=== PATIENT | male | born 1995 | race African-American/Black ===

== ENCOUNTER 2020-10-19 03:25 | Inpatient (IN) | payer OTHER ==
[~2020-10-19] VITALS: Ht 182.9 cm; Wt 103.6 kg
[2020-10-19] VITALS (28 sets, daily range): BP systolic 93–134; BP diastolic 38–93
--- NOTE | 2020-10-19 03:40 | NUR ---
ARRIVAL PATIENT CALLED AHEAD BECAUSE HE IS FROM OUT OF TOWN AND DRIVING THROUGH. STATES THAT HE IS DIZZY, WEAK, HOT AND BEGAN SHAKING UNCONTROLABLY IN THE CAR. VOICES THAT HE HAS A HISTORY OF DM AND DOES NOT TAKE HIS INSULIN LIKE HE IS SUPPOSED TO. "I HAVEN'T TAKEN MY INSULIN IN A YEAR." PATIENT STATES THAT HE DID VOMIT ONE TIME YESTERDAY MORNING, BUT THEN FELT FINE DURING THE DRIVE UNTIL THE HOT FLASHES AND SHAKING BEGAN. PATIENT IS WEAK, WITH UNSTEADY GAIT. EDUCATED PATIENT ON SEPSIS WORKUP, ALL TESTS, MEDICATIONS AND LENGTH OF STAY. VERBALIZED UNDERSTANDING AT THIS TIME.
[2020-10-19] MEDS ORDERED: TYLENOL PO STA (03:46)
[2020-10-19] MEDS ORDERED: NS 1000ML 1,000 ML IV STA ×3 (03:46→05:09)
--- NOTE | 2020-10-19 03:51 | NUR ---
RT AT BEDSIDE FOR EKG.
--- NOTE | 2020-10-19 03:53 | NUR ---
RAD AT BEDSIDE FOR PORTABLE CHEST XRAY
[2020-10-19] MEDS ORDERED: TYLENOL PO ONE (03:54)
[2020-10-19] MEDS ORDERED: NS 1000ML 2,000 ML ONE (03:54)
--- NOTE | 2020-10-19 03:56 | ER.PDOC ---
General Chief Complaint: Requesting Medical Care Stated Complaint: FEVER/CHILLS Time seen by MD: 03:53 Source: patient Exam Limitations: no limitations History of Present Illness Initial Comments Fever and malaise this morning. Patient is traveling past this area to [place]. No cough, headache or sore throat, cough or SOB. He denies headache. He is a diabetic who is supposed to be taking insulin but has not done so since last year. Patient had COVID last year. Timing/Duration: gradual Severity: moderate Associated Symptoms: fever/chills Allergies: Coded Allergies: No Known Allergies (Unverified , 10/19/20) Constitutional: see HPI EENTM: no symptoms reported Respiratory: no symptoms reported Cardiovascular: no symptoms reported Gastrointestinal: no symptoms reported Genitourinary: no symptoms reported All Other Systems: Reviewed and Negative Past Medical History Medical History: diabetes Surgical History: no surgical history Family History Significant Family History: no pertinent family hx Social History Smoking: non-smoker Alcohol Use: none Drug Use: none Physical Exam General Appearance: alert, no distress Eye: eyes nml inspection Nose: nose nml Throat: pharynx nml, airway nml Neck: nml inspection, supple Respiratory: no resp.distress, breath sounds nml Abdomen: non-tender, no organomegaly CVS: reg rate & rhythm, heart sounds nml, tachycardia Skin: color nml, no rash, warm/dry Extremities: non-tender, nml ROM, no pedal edema NEURO/PSYCH: oriented x 3, CN's nml as tested, motor nml, sensation nml, mood/affect nml Results/Orders Results/Orders Orders - BREANA HOGAN MD Cbc With Auto Diff (10/19/20 03:46) Comprehensive Metabolic Panel (10/19/20 03:46) Ekg-Routine (10/19/20 03:46) Xr Chest 1v (10/19/20 03:46) Strep Screen (10/19/20 03:46) Covid19 Antigen Janelle Anne-Marie (10/19/20 03:46) Influenza A&B (10/19/20 03:46) Blood Culture (10/19/20 03:46) Lactic Acid(Ml) (10/19/20 03:46) Procalcitonin (10/19/20 03:46) Urinalysis (10/19/20 03:46) C-Reactive Protein (10/19/20 03:46) Ferritin(Ml) (10/19/20 03:46) Lactate Dehydrogenase (10/19/20 03:46) 0.9 % Sodium Chloride (Ns 1000ml) (10/19/20 03:46) Acetaminophen (Tylenol) (10/19/20 03:46) 0.9 % Sodium Chloride (Ns 1000ml) (10/19/20 03:54) Acetaminophen (Tylenol) (10/19/20 03:54) D-Dimer (10/19/20 03:55) Arterial Blood Gas (10/19/20 04:09) Covid Resp [place] (10/19/20 04:16) 0.9 % Sodium Chloride (Ns 1000ml) (10/19/20 04:22) Urine Culture (10/19/20 03:45) 0.9 % Sodium Chloride (Ns 1000ml) (10/19/20 05:09) Drug Scrn Med W Confirmation (10/19/20 05:27) Insulin Regular, Human (Humulin R) (10/19/20 05:42) Insulin Regular, Human (Humulin R) (10/19/20 05:42) Insulin Regular, Human (Humulin R) (10/19/20 05:43) Vital Signs Date Time Temp Pulse Resp B/P (MAP) Pulse Ox O2 Delivery O2 Flow Rate FiO2 10/19/20 05:17 100.1 125 18 119/63 (81) 96 Room Air 10/19/20 04:31 125 22 122/81 (95) 94 Room Air 10/19/20 04:04 103.0 154 30 94 10/19/20 04:04 103.0 154 30 10/19/20 04:04 103.0 154 30 116/78 (91) 94 Room Air Administered Medications Medications (Trade) Dose Ordered Sig/Zack Route PRN Reason Start Time Stop Time Status Last Admin Dose Admin Acetaminophen (Tylenol) 1,000 mg STAT STAT PO 10/19/20 03:46 10/19/20 03:51 DC 10/19/20 04:03 1,000 MG Insulin Human Regular (Humulin R) 10 unit OT STAT IV 10/19/20 05:42 10/19/20 05:45 DC 10/19/20 05:48 10 UNIT Insulin Human Regular (Humulin R) 10 unit OT STAT SQ 10/19/20 05:42 10/19/20 05:45 DC 10/19/20 05:48 10 UNIT Sodium Chloride 1,000 ml @ 1,200 mls/hr Q50M STAT IV 10/19/20 03:46 10/19/20 04:35 DC 10/19/20 04:03 1,200 MLS/HR Sodium Chloride 1,000 ml @ 1,200 mls/hr Q50M STAT IV 10/19/20 04:22 10/19/20 05:11 DC 10/19/20 04:27 1,200 MLS/HR Sodium Chloride 1,000 ml @ 1,200 mls/hr Q50M STAT IV 10/19/20 05:09 10/19/20 05:58 DC 10/19/20 05:16 1,200 MLS/HR Laboratory Tests Test 10/19/20 03:30 10/19/20 03:45 10/19/20 04:16 10/19/20 05:50 Urine Opiates Screen NEGATIVE (c/o300ng/mL) Urine Methadone Screen NEGATIVE (c/o300ng/mL) Urine Barbiturates Screen NEGATIVE (c/o200ng/mL) Urine Phencyclidine Screen NEGATIVE (c/o 25ng/mL) Ur Amphetamine/Methamphetamine NEGATIVE (gt6586tl/mL) Urine MDMA Screen (Ecstasy) NEGATIVE (c/o300ng/mL) Urine Benzodiazepines Screen NEGATIVE (c/o200ng/mL) Urine Cocaine Metabolite Screen NEGATIVE (c/o300ng/mL) Ur Tetrahydrocannabinol (THC) Scrn NEGATIVE (c/o 50ng/mL) White Blood Count 6.9 10^3/uL (4.5-11.0) Red Blood Count 5.19 10^6/uL (4.50-5.90) Hemoglobin 13.9 g/dL (13.9-16.3) Hematocrit 39.3 % (37.0-53.0) Mean Corpuscular Volume 75.7 fL (78-100) L Mean Corpuscular Hemoglobin 26.8 pg (26-34) Mean Corpuscular Hemoglobin Concent 35.4 g/dL (33-36.5) Red Cell Distribution Width 16.1 % (11.5-14.5) H Platelet Count 251 10^3/uL (150-400) Mean Platelet Volume 11.2 fL (7.8-11.0) H Neutrophils (%) (Auto) 60.9 % (41.0-85.0) Lymphocytes (%) (Auto) 36.2 % (24.0-44.0) Monocytes (%) (Auto) 1.6 % (5.0-12.0) L Neutrophils # (Auto) 4.2 10^3/uL (1.8-7.7) Lymphocytes # (Auto) 2.50 10^3/uL1 (1.0-4.8) Monocytes # (Auto) 0.1 10^3/uL (0.3-0.8) L Absolute Immature Granulocyte (auto 0.06 10^3 u/L (0-2) Absolute Eosinophils (auto) 0.0 10^3/uL (0.0-0.2) Immature Granulocytes % 0.90 % (0.00-0.50) H Eosinophils % 0.1 % (0.0-5.0) Basophils % 0.3 % (0.0-0.2) H Basophils # 0.0 10^3/uL (0.0-0.1) D-Dimer 0.53 mg/L (0.19-0.49) *H Urine Collection Type VOID Urine Color YELLOW (YELLOW) Urine Appearance CLEAR (CLEAR) Urine Bilirubin NEGATIVE MG/DL (NEGATIVE) Urine Ketones 15 mg/dL (NEGATIVE) H Urine Specific [place] <1.005 (1.005-1.035) Urine pH 5.0 (5.0-6.0) Urine Protein 30 mg/dL (NEGATIVE) H Urine Urobilinogen 0.2 (NEGATIVE) Urine Nitrate NEGATIVE (NEGATAIVE) Urine Leukocyte Esterase NEGATIVE (NEGATIVE) Urine Blood NEGATIVE (NEGATIVE) Urine RBC NONE SEEN RBC/HPF (NONE Urine WBC 0-2 WBC/HPF (0-2) Urine Squamous Epithelial Cells FEW #/HPF (FEW) Urine Bacteria FEW (NONE SEEN) H Urine Glucose >=1000 (NEGATIVE) Sodium Level 136 mmol/L (132-145) Potassium Level 4.1 mmol/L (3.6-5.2) Chloride Level 97.0 mmol/L (96-109) Carbon Dioxide Level 20.6 mmol/L (20.0-32) Anion Gap 22.5 Blood Urea Nitrogen 14 mg/dL (7-18) Creatinine 1.50 mg/dL (0.59-1.40) H Estimated GFR () 70.2 (>/=60) Est GFR (CKD-EPI)(Non-Afr [place]) 58.0 (>/=60) BUN/Creatinine Ratio 9.0 Glucose Level 542 mg/dL (70-110) *H Lactic Acid Level 3.3 mmol/L (0.5-1.9) *H Calcium Level 9.1 mg/dL (8.4-10.5) Ferritin 545 ng/mL (26-388) H Total Bilirubin 1.1 mg/dL (0.2-1.0) H Aspartate Amino Transferase (AST) 60 U/L (0-35) H Alanine Aminotransferase (ALT) 98 U/L (12-78) H Alkaline Phosphatase 63 U/L (50-136) Lactate Dehydrogenase 280 U/L (85-227) H C-Reactive Protein 6.10 mg/dL (0.00-5.00) H Total Protein 8.2 g/dL (6.4-8.2) Albumin 3.9 g/dL (3.4-5.0) Globulin 4.3 Albumin/Globulin Ratio 0.906 Procalcitonin 0.53 ng/mL (0.05-0.5) *H Influenza Type A Antigen NEGATIVE (NEG) Influenza B Immunofluorescence NEGATIVE (NEG) SARS-CoV-2 Antigen (Rapid) NEGATIVE (NEGATIVE) Group A Streptococcus Screen NEGATIVE (NEGATIVE) Nasal Adenovirus (PCR) NotDetected (NotDetected) Nasal Coronavirus Type 229E (PCR) NotDetected (NotDetected) Nasal Coronavirus Type HKU1 (PCR) NotDetected (NotDetected) Nasal Coronavirus Type NL63 (PCR) NotDetected (NotDetected) Nasal Coronavirus Type OC43 (PCR) NotDetected (NotDetected) Nasal Enterovirus/Rhinovirus (PCR) NotDetected (NotDetected) Nasal Influenza Type A (H1) (PCR) NotDetected (NotDetected) Nasal Influenza Type A (H3) (PCR) NotDetected (NotDetected) Nasal Swab Influenza Virus B (PCR) NotDetected (NotDetected) Nasal Parainfluenza Type 1 (PCR) NotDetected (NotDetected) Nasal Parainfluenza Type 2 (PCR) NotDetected (NotDetected) Nasal Parainfluenza Type 3 (PCR) NotDetected (NotDetected) Nasal Parainfluenza Type 4 (PCR) NotDetected (NotDetected) Nasal Resp Syncytial Virus (PCR) NotDetected (NotDetected) Nasal Bordetella pertussis DNA (PCR NotDetected (NotDetected) Nasal Chlamydophila pneumoniae (PCR NotDetected (NotDetected) Nasal Human Metapneumovirus (PCR) NotDetected (NotDetected) Nasal Mycoplasma pneumoniae (PCR) NotDetected (NotDetected) Nasal SARS-CoV-2 (PCR) NotDetected (NotDetected) Blood Gas Sample Site LEFT RADIAL ARTERY Blood pH 7.461 (7.350-7.450) Blood Gas PCO2 24.1 mmHg (35.0-45.0) L Blood Gas PO2 54.6 mmHg (80.0-100.0) L Blood Gas HCO3 16.8 mmol/L (22.0-26.0) L Blood Gas Base Excess -5.1 mmol/L (-2.0-2.0) L Tony Test POSITIVE Arterial Blood Oxygen Saturation 90.9 % (94.0-97.00) L Deoxyhemoglobin 9.0 % (0.0-5.0) H Carboxyhemoglobin 1.0 % (0.0-3.9) Methemoglobin 0.5 % (0.00-5.0) Total Hemoglobin 13.7 % (12.0-17.8) Total Oxygen Concentration 17.2 % (13.5-17.5) Oxygen Delivery Method ROOM AIR FiO2 21 % (20-101) Total Carbon Dioxide 17.5 mmol/L (23-27) L Influenza Type A (H1N1/09) (PCR) NotDetected (NotDetected) Lactic Acid Followup at 2 Hours 1.9 mmol/L (0.5-1.9) EKG/XRAY/CT/US EKG: NSR, no ST T wave changes EKG Comments: HR 151, sinus tachycardia XRAY: chest (No active disease) ER DEPART Departure Time of Disposition: 06:29 Disposition: 09 ADMITTED INPATIENT Impression: Primary Impression: Sepsis Additional Impressions: Hyperglycemia due to diabetes mellitus JUNIOR (acute kidney injury) Dehydration Condition: Critical Referrals: PCP,UNKNOWN (PCP) PRIMARY CARE PROVIDER Comments Admitted to Dr. Kenyon Duration or Time Spent with Pa: 60 min Critical Care Note Total Time (mins): 60 Problem Qualifiers Primary Impression: Sepsis Sepsis type: sepsis due to unspecified organism Sepsis acute organ dysfunction status: unspecified Qualified Codes: A41.9 - Sepsis, unspecified organism EDISON,BREANA Diaz MD Oct 19, 2020 03:56
[2020-10-19 03:57] LABS: BASOPHIL % 0.3 % (0.0-0.2); EOSINOPHIL % 0.1 % (0.0-5.0); LYMPHOCYTES % 36.2 % (24.0-44.0); MONOCYTES # 0.1 10^3/uL (0.3-0.8); MONOCYTES % 1.6 % (5.0-12.0); NEUTROPHIL # 4.2 10^3/uL (1.8-7.7); NEUTROPHILS % 60.9 % (41.0-85.0); PLATELET COUNT 251 10^3/uL (150-400)
--- NOTE | 2020-10-19 03:57 | PCM.EKG ---
[facility] Test Date: 2020-10-19 Test Time: 03:50:47 Pat Name: RUTHY STACY Department: Room: ICU1 Gender: M Insurance Collector: F[place] : 1995 Requested By: BREANA HOGAN Order Number: [id number] Reading MD: Breana HOGAN Measurements Intervals [place] Rate: 151 P: 93 AK: 127 QRS: 100 QRSD: 96 T: 27 QT: 328 QTc: 521 Interpretive Statements Sinus tachycardia Borderline right axis deviation Prolonged QT interval No previous ECG available for comparison Electronically Signed On 10-19-2020 22:13:42 ENTERPRISE ENGINEER by Breana HOGAN Please click the below link to view image of tracing.
--- NOTE | 2020-10-19 04:18 | DIREP ---
PROCEDURE:CHEST 1 VIEW COMPARISON:None. INDICATIONS:Fever FINDINGS: LUNGS/PLEURA:No significant pulmonary parenchymal abnormalities. No effusions. VASCULATURE:Normal. Unremarkable pulmonary vasculature. CARDIAC:Normal. No cardiac silhouette abnormality or cardiomegaly. MEDIASTINUM:Normal. No visible mass or adenopathy. BONES:Normal. No fracture or visible bony lesion. OTHER:Negative. CONCLUSION:No acute pulmonary process. Dictated by: Justine Nevarez M.D. on 10/19/2020 at 04:15 AM
[2020-10-19 04:28] LABS: ABG PCO2 24.1 mmHg (35.0-45.0); ABG PH 7.461 (7.350-7.450); BE(B) -5.1 mmol/L (-2.0-2.0); HCO3act 16.8 mmol/L (22.0-26.0); pO2 54.6 mmHg (80.0-100.0)
[2020-10-19 04:33] LABS: APPEARANCE,URINE CLEAR (CLEAR); BILIRUBIN,URINE NEGATIVE (NEGATIVE); UA COLOR YELLOW (YELLOW)
[2020-10-19 04:34] LABS: UROBILINOGEN,URINE 0.2 (NEGATIVE)
--- NOTE | 2020-10-19 04:36 | NUR ---
CRITICAL RESULTS PROCALCITONIN RESULT OF 0.53, CALLED TO RN BY
[2020-10-19 04:40] LABS: CALCIUM 9.1 mg/dL (8.4-10.5); CARBON DIOXIDE 20.6 mmol/L (20.0-32)
--- NOTE | 2020-10-19 04:42 | NUR ---
CRITICAL RESULTS BLOOD GLUCOSE 542, RESULTS CALLED TO RN BY
--- NOTE | 2020-10-19 04:48 | NUR ---
CRITICAL RESULTS D-DIMER 0.53, RESULTS CALLED TO RN BY
[2020-10-19 05:05] LABS: MEAN CORP HGB 26.8 pg (26-34); RED CELL DISTRIBUTION WIDTH 16.1 % (11.5-14.5)
[2020-10-19] MEDS ORDERED: HUMULIN R IV STA (05:42)
[2020-10-19] MEDS ORDERED: HUMULIN R SQ STA (05:42)
[2020-10-19] MEDS ORDERED: HUMULIN R ONE ×2 (05:43→09:31)
[2020-10-19] MEDS ORDERED: ROCEPHIN 1,000 MG in NS 100ML 100 ML IV STA (06:32)
[2020-10-19] MEDS ORDERED: HNS 1000ML/KCL 20MEQ 1,000 ML IV STA (06:32)
[2020-10-19] MEDS ORDERED: HNS 1000ML/KCL 20MEQ 1,000 ML ONE (06:50)
[2020-10-19] MEDS ORDERED: ROCEPHIN ONE (06:50)
[2020-10-19] MEDS ORDERED: ZOFRAN ONE (07:01)
[2020-10-19] MEDS ORDERED: ZOFRAN IV STA (07:08)
--- NOTE | 2020-10-19 07:08 | PCM.HP ---
History of Present Illness Reason for Visit: 25 YO male comes with hypoxemai fever and sepsis History of Present Illness SEPSIS and Other Febrile Illness Without Focal Infection (Place 'X' for any and all applicable criteria): Admission to inpatient status for two midnights or more is indicated for ANY ONE of the following (1)(2)(3): [ ] I. Bacteremia [ ]II. Suspected or identified specific infection requiring hospitalization (eg, meningitis, endocarditis) [ x]III. Hemodynamic instability [x ]IV. Temperature > 104.9 0F (40.5 0C) (oral) [ ]V. Core (rectal) temperature < 95 0F (35 0C) (eg, thought to be due to infection) [ ]. Altered mental status that is severe or persistent [ ]VII. Failure or unavailability of outpatient antimicrobial treatment [x ]VIII. Hypoxemia [ ]IX. Seizures [ ]X. New coagulopathy (eg, reduced platelet count consistent with disseminated intravascular coagulation) [x]XI. Inpatient admission required [B] rather than observation care bec ause of 1 or more of the following 1) Tachypnea not responsive to outpatient or observation treatment 2) Metabolic disorder (eg, hypoglycemia, hyperglycemia, metabolic acidosis) that persists despite outpatient and observation care treatment 3) Evidence of end-organ dysfunction (eg, rising creatinine, myocardial ischemia, rising liver function tests) that is severe or persists despite observation care treatment 4) Temperature > 103.1 0F (39.5 0C) (oral) that is not responsive to obser vation care treatment 5) Dehydration that is severe or persistent 6) Parenteral antimicrobial regimen that must be implemented on inpatient basis (eg, infusion or monitoring needs beyond capabilities of outpatient parenteral therapy) 7) Strict or protective (eg, laminar flow) isolation 8) Other condition, treatment or monitoring requiring inpatient admission Extended stay beyond goal length of stay may be needed for(1)(3) [ ]a) Persistent Hypotension [ ]b) Positive blood cultures [ ]c) Lack of improvement on antimicrobial treatment (eg, continued fever) [ ]d) Active comorbid illness (eg, heart failure, renal failure) [ ]e) High-risk febrile neutropenia [ ]f) Insufficient oral intake [ ]g) insufficient oral intake The original [facility] content created by Peyman Wagner has been revised. The portions of the content which have been revised are identified through the use of italic text, and [facility] has neither reviewed nor approved the modified material. All other unmodified content is copyright [facility]. Please see references footnoted in the original [facility] edition 2014 patient is 25 YO male with Hx of NIDDM / type II for > 3 years with high cholesterol and HTN. Not taking ay meds for over a year. Lives in [place] and parents are in [place]. While traveling today developed high fever come sto ER and was found to have temp 103-104. JUNIOR and Hyperglycemia patient seen and evaluated using telemedicine protocol FMH: + DMII Past Medical History Cardiac: HTN, Hyperlipidemia Endocrine: Diabetes, Other (obesity ) Past Surgical History: No pertinent hx, Other Past Social History Smoke: No Alcohol: none Drugs: None Lives: with Family (with brother ) Travel Hx EBOLA RISK:Travel to/contact w: No Is pt experiencing any Ebola s: No Review of Systems Constitutional: Fever, Chills, Weakness, Malaise Respiratory: Cough, Shortness of breath Gastrointestinal: Nausea Neurological: Weakness Allergies: Coded Allergies: No Known Allergies (Unverified , 10/19/20) VTE VTE Risk Score VTE Risk: Score 0-1 = Low Risk (Aggressive mobilization; early ambulation; no VTE prophylaxis required) Score 2: Moderate Risk (Intermittent/Pneumatic Compression Device OR Lovenox/Heparin/Coumadin) Score 3-4: High Risk (Intermittent/Pneumatic Compression Device AND Lovenox/Heparin/Coumadin) Score > or =5: Highest Risk (Intermittent/Pneumatic Compression Device AND Lovenox/Heparin/Coumadin) Exam Vital Signs Vital Signs Date Time Temp Pulse Resp B/P (MAP) Pulse Ox O2 Delivery O2 Flow Rate FiO2 10/19/20 05:17 100.1 125 18 119/63 (81) 96 Room Air General Appearance: Alert, Oriented X3, Cooperative, No acute distress HEENT: Atraumatic, PERRLA, Mucous membr. moist/pink Respiratory: Clear to auscultation, Normal air movement Cardiovascular: Regular rate, Normal S1, Normal S2, No murmurs Abdominal: Normal bowel sounds, Soft, No tenderness, No hepatospenomegaly Extremities: No clubbing, No cyanosis, No edema, Normal pulses Skin: No rash Neuro: Normal gait, Normal speech, Strength at 5/5 X4 ext, Normal tone, Sensation intact, Cranial nerves 3-12 NL, Reflexes 2+ Psych/Mental Status: Mental status NL, Mood NL Assessment/Plan Assessment/Plan Assessment/Plan Problems Medical Problems: (1) JUNIOR (acute kidney injury) Status: Acute Rank: 3 ICD Codes: N17.9 - Acute kidney failure, unspecified SNOMED: 45029793, [id number] Responsible Provider: Gume Diaz MBA, MD - ED Problem Recorded: Oct 19, 2020 06:32 Last Edited By: Intex[employer] UPDATE on Oct 19, 2020 06:59 (2) Dehydration Status: Acute Rank: 1 ICD Codes: E86.0 - Dehydration SNOMED: 34125333, 0812713 Responsible Provider: Gume Diaz MBA, MD - ED Problem Recorded: Oct 19, 2020 06:32 Last Edited By: Intexys UPDATE on Oct 19, 2020 06:59 (3) Hyperglycemia due to diabetes mellitus Status: Acute Rank: 4 ICD Codes: E11.65 - Type 2 diabetes mellitus with hyperglycemia SNOMED: 863025266, 13576790 Responsible Provider: Gume Diaz MBA, MD - ED Problem Recorded: Oct 19, 2020 06:32 Last Edited By: Intexys UPDATE on Oct 19, 2020 06:59 (4) Sepsis Status: Acute Rank: 2 ICD Codes: A41.9 - Sepsis, unspecified organism SNOMED: 85697318, 50983842 Responsible Provider: Gume Diaz MBA, MD - ED Problem Recorded: Oct 19, 2020 06:32 Last Edited By: Intexys UPDATE on Oct 19, 2020 06:59 Laboratory Tests Test 10/19/20 03:30 10/19/20 03:45 10/19/20 04:16 10/19/20 05:50 Urine Opiates Screen NEGATIVE Urine Methadone Screen NEGATIVE Urine Barbiturates Screen NEGATIVE Urine Phencyclidine Screen NEGATIVE Ur Amphetamine/Methamphetamine NEGATIVE Urine MDMA Screen (Ecstasy) NEGATIVE Urine Benzodiazepines Screen NEGATIVE Urine Cocaine Metabolite Screen NEGATIVE Ur Tetrahydrocannabinol (THC) Scrn NEGATIVE White Blood Count 6.9 10^3/uL Red Blood Count 5.19 10^6/uL Hemoglobin 13.9 g/dL Hematocrit 39.3 % Mean Corpuscular Volume 75.7 fL Mean Corpuscular Hemoglobin 26.8 pg Mean Corpuscular Hemoglobin Concent 35.4 g/dL Red Cell Distribution Width 16.1 % Platelet Count 251 10^3/uL Mean Platelet Volume 11.2 fL Neutrophils (%) (Auto) 60.9 % Lymphocytes (%) (Auto) 36.2 % Monocytes (%) (Auto) 1.6 % Neutrophils # (Auto) 4.2 10^3/uL Lymphocytes # (Auto) 2.50 10^3/uL1 Monocytes # (Auto) 0.1 10^3/uL Absolute Immature Granulocyte (auto 0.06 10^3 u/L Absolute Eosinophils (auto) 0.0 10^3/uL Immature Granulocytes % 0.90 % Eosinophils % 0.1 % Basophils % 0.3 % Basophils # 0.0 10^3/uL D-Dimer 0.53 mg/L Urine Collection Type VOID Urine Color YELLOW Urine Appearance CLEAR Urine Bilirubin NEGATIVE MG/DL Urine Ketones 15 mg/dL Urine Specific [place] <1.005 Urine pH 5.0 Urine Protein 30 mg/dL Urine Urobilinogen 0.2 Urine Nitrate NEGATIVE Urine Leukocyte Esterase NEGATIVE Urine Blood NEGATIVE Urine RBC NONE SEEN RBC/HPF Urine WBC 0-2 WBC/HPF Urine Squamous Epithelial Cells FEW #/HPF Urine Bacteria FEW Urine Glucose >=1000 Sodium Level 136 mmol/L Potassium Level 4.1 mmol/L Chloride Level 97.0 mmol/L Carbon Dioxide Level 20.6 mmol/L Anion Gap 22.5 Blood Urea Nitrogen 14 mg/dL Creatinine 1.50 mg/dL Estimated GFR () 70.2 Est GFR (CKD-EPI)(Non-Afr [place]) 58.0 BUN/Creatinine Ratio 9.0 Glucose Level 542 mg/dL Lactic Acid Level 3.3 mmol/L Calcium Level 9.1 mg/dL Ferritin 545 ng/mL Total Bilirubin 1.1 mg/dL Aspartate Amino Transf (AST/SGOT) 60 U/L Alanine Aminotransferase (ALT/SGPT) 98 U/L Alkaline Phosphatase 63 U/L Lactate Dehydrogenase 280 U/L C-Reactive Protein 6.10 mg/dL Total Protein 8.2 g/dL Albumin 3.9 g/dL Globulin 4.3 Albumin/Globulin Ratio 0.906 Procalcitonin 0.53 ng/mL Influenza Type A Antigen NEGATIVE Influenza B Immunofluorescence NEGATIVE SARS-CoV-2 Antigen (Rapid) NEGATIVE Group A Streptococcus Screen NEGATIVE Nasal Adenovirus (PCR) NotDetected Nasal Coronavirus Type 229E (PCR) NotDetected Nasal Coronavirus Type HKU1 (PCR) NotDetected Nasal Coronavirus Type NL63 (PCR) NotDetected Nasal Coronavirus Type OC43 (PCR) NotDetected Nasal Enterovirus/Rhinovirus (PCR) NotDetected Nasal Influenza Type A (H1) (PCR) NotDetected Nasal Influenza Type A (H3) (PCR) NotDetected Nasal Swab Influenza Virus B (PCR) NotDetected Nasal Parainfluenza Type 1 (PCR) NotDetected Nasal Parainfluenza Type 2 (PCR) NotDetected Nasal Parainfluenza Type 3 (PCR) NotDetected Nasal Parainfluenza Type 4 (PCR) NotDetected Nasal Resp Syncytial Virus (PCR) NotDetected Nasal Bordetella pertussis DNA (PCR NotDetected Nasal Chlamydophila pneumoniae (PCR NotDetected Nasal Human Metapneumovirus (PCR) NotDetected Nasal Mycoplasma pneumoniae (PCR) NotDetected Nasal SARS-CoV-2 (PCR) NotDetected Blood Gas Sample Site LEFT RADIAL ARTERY Blood Gas pH 7.461 Blood Gas PCO2 24.1 mmHg Blood Gas PO2 54.6 mmHg Blood Gas HCO3 16.8 mmol/L Blood Gas Base Excess -5.1 mmol/L Tony Test POSITIVE Arterial Blood Oxygen Saturation 90.9 % Deoxyhemoglobin 9.0 % Carboxyhemoglobin 1.0 % Methemoglobin 0.5 % Total Hemoglobin 13.7 % Total Oxygen Concentration 17.2 % Oxygen Delivery Method (LAB) ROOM AIR FiO2 21 % Total Carbon Dioxide 17.5 mmol/L Influenza Type A (H1N1/09) (PCR) NotDetected Lactic Acid Followup at 2 Hours 1.9 mmol/L Test 10/19/20 06:26 Bedside Glucose 352 Current Medications Medications (Trade) Dose Ordered Sig/Zack Route PRN Reason Start Time Stop Time Status Last Admin Dose Admin Sodium Chloride 1,000 ml @ 1,200 mls/hr Q50M STAT IV 10/19/20 03:46 10/19/20 04:35 DC 10/19/20 04:03 Acetaminophen (Tylenol) 1,000 mg STAT STAT PO 10/19/20 03:46 10/19/20 03:51 DC 10/19/20 04:03 Sodium Chloride 2,000 ml @ ud STK-MED ONCE .ROUTE 10/19/20 03:54 10/19/20 03:55 DC Acetaminophen (Tylenol) 500 mg STK-MED ONCE PO 10/19/20 03:54 10/19/20 03:55 DC Sodium Chloride 1,000 ml @ 1,200 mls/hr Q50M STAT IV 10/19/20 04:22 10/19/20 05:11 DC 10/19/20 04:27 Sodium Chloride 1,000 ml @ 1,200 mls/hr Q50M STAT IV 10/19/20 05:09 10/19/20 05:58 DC 10/19/20 05:16 Insulin Human Regular (Humulin R) 10 unit OT STAT IV 10/19/20 05:42 10/19/20 05:45 DC 10/19/20 05:48 Insulin Human Regular (Humulin R) 10 unit OT STAT SQ 10/19/20 05:42 10/19/20 05:45 DC 10/19/20 05:48 Insulin Human Regular (Humulin R) 1 unit STK-MED ONCE .ROUTE 10/19/20 05:43 10/19/20 05:44 DC Potassium Chloride/Sodium Chloride 1,000 ml @ 100 mls/hr Q10H STAT IV 10/19/20 06:32 10/19/20 16:31 10/19/20 06:50 Ceftriaxone Sodium 1000 mg/ Sodium Chloride 100 ml @ 100 mls/hr STAT STAT IV 10/19/20 06:32 10/19/20 07:31 10/19/20 06:49 Potassium Chloride/Sodium Chloride 1,000 ml @ ud STK-MED ONCE .ROUTE 10/19/20 06:50 10/19/20 06:51 DC Ceftriaxone Sodium (Rocephin) 1,000 mg STK-MED ONCE .ROUTE 10/19/20 06:50 10/19/20 06:51 DC Plan 1. Sepsis/ SIRS": source not found yet. Rx with IVF and Rocephen. admit to ICU 2. Type II NIDDM : INtense insulin protocol and IVF 3. JUNIOR : due to dehydration and sepsis should recover 4. Hypoemia: CHeck CTA ; CAMILA Ohara MD Oct 19, 2020 07:08
[2020-10-19] MEDS: LOVENOX SQ SCH ×2 (08:18→21:46)
--- NOTE | 2020-10-19 08:35 | NUR ---
NOTIFIED DR. CAREY ABOUT RADIOLOGY UNABLE TO DO CTA CHEST D/T CREATININE LEVEL 1.5 NEW ORDERS RECEIVED TO REPEAT BMP NOW. RBTO.
[2020-10-19 09:13] LABS: CALCIUM 7.7 mg/dL (8.4-10.5); CARBON DIOXIDE 21.5 mmol/L (20.0-32)
[2020-10-19] MEDS ORDERED: DEXTROSE 50%-WATER SYRINGE IV PRN (09:30)
[2020-10-19] MEDS: HUMULIN R SQ SCH ×4 (09:32→21:46)
--- NOTE | 2020-10-19 09:56 | NUR ---
PATIENT OFF UNIT FOR CTA CHEST.
[2020-10-19] MEDS ORDERED: ZOFRAN IV PRN (10:30)
--- NOTE | 2020-10-19 10:54 | DIREP ---
PROCEDURE:CTA CHEST COMPARISON:None. INDICATIONS:Hypoxemia TECHNIQUE:Post contrast axial images through the chest with multiplanar MIP/3D reconstructions. FINDINGS: PULMONARY ARTERIES:Patent. LUNGS:Subtle peripheral ground-glass opacities in bilateral lungs most prominent in the lower lobes. Subsegmental bibasilar atelectasis. No consolidation or suspicious pulmonary nodule. Central airways are patent. Accessory inferior fissure in the right lower lobe. PLEURA:Normal. CARDIAC:Normal size heart and normal pulmonary vascularity. RV:LV ratio (norm <0.9): Not applicable in the absence of pulmonary embolism. THORACIC AORTA:Normal. MEDIASTINUM:Normal. THYROID:Normal. BONES:Normal. OTHER:Enlarged markedly steatotic liver. Replaced left hepatic artery arising from the left gastric artery. Small accessory left hepatic artery with conventional anatomy. CONCLUSION: 1. No pulmonary embolism identified. Subtle peripheral ground-glass opacities in the bilateral lungs most prominent in the lower lobes which could be seen with COVID-19 pneumonia. Other processes such as influenza pneumonia, organizing pneumonia, drug toxicity, and connective tissue disease can cause a similar imaging pattern. 2. Enlarged markedly steatotic liver and other incidental findings as above. Dictated by: Luis Martin M.D. On 10/19/2020 at 10:46 AM
[2020-10-19] MEDS ORDERED: SUBLIMAZE ONE (13:05)
[2020-10-19] MEDS ORDERED: SUBLIMAZE IV ONE (13:30)
--- NOTE | 2020-10-19 19:05 | NUR ---
SHIFT CHANGE REPORT Verbal report given by VALERY Villa. Pt alert and oriented x4, able to verbalize needs, denies pain or discomfort at this time. Pending repeat Covid PCR, second order placed by MD Kenyon, CTA chest done today negative for PE but shows ground glass opacities in b/l lower lobes, in addition to an enlarged liver. Pt c/o only of a stuffy nose, no coughing noted. Pt maintained on 0.45% NACL 20MEQ KCL @ 100cc/hr. Vital signs wnl, Afebrile. Pending results of blood cultures, Cdiff negative, occult stool positive. Will continue to closely monitor.
[2020-10-19] MEDS: HNS 1000ML/KCL 20MEQ 1,000 ML IV SCH (19:30)
[2020-10-19] MEDS ORDERED: LANTUS SQ SCH (21:00)
[2020-10-19] MEDS: TYLENOL PO PRN (22:16)
[2020-10-20] VITALS (13 sets, daily range): BP systolic 107–126; BP diastolic 54–85
[2020-10-20] MEDS: HNS 1000ML/KCL 20MEQ 1,000 ML IV SCH ×2 (04:52→05:11)
[2020-10-20 05:32] LABS: BASOPHIL # 0.1 10^3/uL (0.0-0.1); BASOPHIL % 1.2 % (0.0-0.2); EOSINOPHIL # 0.1 10^3/uL (0.0-0.2); LYMPHOCYTES # 2.57 10^3/uL1 (1.0-4.8); LYMPHOCYTES % 49.3 % (24.0-44.0); MONOCYTES # 0.2 10^3/uL (0.3-0.8); MONOCYTES % 4.2 % (5.0-12.0); NEUTROPHIL # 2.3 10^3/uL (1.8-7.7); NEUTROPHILS % 43.9 % (41.0-85.0); PLATELET COUNT 159 10^3/uL (150-400)
[2020-10-20 06:19] LABS: MEAN CORP HGB 26.8 pg (26-34); RED CELL DISTRIBUTION WIDTH 15.8 % (11.5-14.5)
[2020-10-20 06:38] LABS: CALCIUM 8.1 mg/dL (8.4-10.5); CARBON DIOXIDE 18.1 mmol/L (20.0-32)
--- NOTE | 2020-10-20 07:00 | NUR ---
RECEIVED REPORT FROM Emy TOBIAS RN. [facility].
[2020-10-20] MEDS: HUMULIN R SQ SCH ×4 (08:14→20:57)
--- NOTE | 2020-10-20 08:47 | PRM.PN ---
PROGRESS NOTE S/O/A/P DATE: 10/20/20 TIME: 8:45am SUBJECTIVE: Says he's feeling better today. No further abdominal pain, nausea, vomiting, diarrhea, fever or chills. Admits to having 2 days of bright red blood in his stool previously, but this has since resolved. Tells me that he recently drank some "contaminated water with parasites" after some pipes burst while he was visiting his Parents in [place] several days ago. OBJECTIVE: PHYSICAL EXAMINATION: VITAL SIGNS: T 98.1, HR 88, RR 18, BP 121/54, O2 sat 93% RA GENERAL: Resting comfortably in NAD. No family or friends present at bedside. HEENT: NC/AT. PERRLA. EOMI. MMM. Neck is supple. LUNGS: CTAB. No wheezing, rales, or rhonchi. No sign of respiratory distress or cyanosis. HEART: Normal S1S2. No murmurs, rubs, gallops, or thrills. ABDOMEN: Soft. NTTP. No rebound or guarding. Normal BS throughout. Obese. EXTREMITIES: No pedal edema noted. Moving all 4 extremities equally. NEUROLOGIC: AAOx3. No motor or sensory deficits noted. Gait was not assessed at this time. LABORATORY DATA: Reviewed and significant for Hgb 12, Hct 34.5, MCV 77, CO2 18 .1, Gluc 263, AST 48, ALT 80, Cr 1.05, Bld Cx neg x1 day, Stool Cx pending. IMAGING STUDIES: 1) CTA chest: No PE. Subtle peripheral ground glass opacities in the BL lungs most prominent in the LLs. Enlarged markedly steatotic liver. ASSESSMENT / PLAN: 1) Sepsis: Improving. Likely due to infectious diarrhea. Stool studies with O&P and culture still pending. 2) Abdominal pain with NVD: Improving and mostly resolved. Continue Sx Tx for now. Consider obtaining a CT abd/pelv if Sx's should worsen. 3) FOBT+: Pt reports no further episodes of bloody diarrhea. Monitor for now. 4) Microcytic Anemia: Will check iron studies. Pt may benefit from some iron supplements. 5) Volume Depletion: Due to NVD. Improving with IVFs. 6) Acute Renal Failure: Prerenal and due to #5 above. Resolved today with IVFs. 7) Hypoxemia: O2 sats 87-89% RA in ED. Resolved with Pt now doing well on RA. CTA chest negative for PE. Will DC Lovenox. 8) Recent COVID-19+: Pt reports having tested + for COVID-19 at the end of July 2020. CTA chest shows some ground glass opacities consistent with prior COVID-19. However, patient reports no respiratory symptoms such as cough, congestion, or SOB at this time. Will monitor for now. 9) Elevated LFTs: Improving today. Hepatitis panel pending. CTA shows an enlarged markedly steatotic liver. Pt will need to follow up closely with his PCP. 10) DM-2 uncontrolled: Pt reports a Hx of DKA due to noncompliance. Will check a HgbA1c and increase the Lantus dose. Continue Insulin per Correction Scale PRN. 11) Hx of HTN: Pt cannot recall the medication that he is supposed to be taking. BPs currently are stable off all meds. Will consider starting Lisinopril on DC. 12) Obesity: Pt has been counseled and encouraged to lead a healthier lifestyle. 13) Noncompliance: Pt has been counseled and encouraged to take his medications as prescribed. 14) GI and DVT prophylaxis: Will start Protonix and SCDs/Early Ambulation. Will avoid Lovenox for now due to #3 above. Discussed the POC with Pt at great length. All questions/concerns sought and addressed. Will transfer Pt out of ICU to the Regular Floor today and anticipate DC home in 1-2 days. SHILA GUTIERRES MD Oct 20, 2020 08:47
[2020-10-20] MEDS ORDERED: LANTUS SQ STA (09:18)
--- NOTE | 2020-10-20 09:21 | NUR ---
DR. GUTIERRES AT BEDSIDE ASSESSING PATIENT. NEW ORDERS RECEIVED FOR LANTUS 5 UNITS SQ STAT, NS 1L BOLUS OT, TRANSFER TO MED SURG FLOOR WITH TELEMETRY MONITORING. RBVO.
[2020-10-20] MEDS: PROTONIX PO SCH (09:28)
[2020-10-20] MEDS: TYLENOL PO PRN (09:29)
[2020-10-20] MEDS ORDERED: NS 1000ML 1,000 ML IV ONE ×2 (09:30)
--- NOTE | 2020-10-20 10:40 | NUR ---
TRANSFERRED TO [facility] FLOOR VIA WHEELCHAIR WITH PATIENT BELONGINGS. REPORT HANDED OFF TO NURSE. RELINQUISHED CARE.
--- NOTE | 2020-10-20 10:45 | NUR ---
Received 25 year old male from ICU via w/c, Report received from Daisy. DX: Sepsis,hyperglycemia, JUNIOR, dehydration. Hx: DM. Patient AAOx3. No c/o pain or discomfort. No acite resp or acute distress noted. Skin warm and dry. 18G right AC. Dressing in place. No s/s of infection. Abd soft, non-tender. Bowel present x 4. Last bowel movement 10/19/20. Pedal pulses present x 2. [facility] to room and call light system, verbalized understanding.
--- NOTE | 2020-10-20 16:45 | NUR ---
Nutrition Education Nurse noted family visiting and [facility] brought in for patient for dinner. Education done in re: to patient diet. Patient verbalize understanding yet non compliant with DM diet. BS at lunch 251 BS at dinner 333 Addendum: 10/20/20 at 1812 by SAMEER SALDANA RN, BRENDA RASMUSSEN [facility] nurse made aware of above, will notify oncoming nurse of non compliant diet.
--- NOTE | 2020-10-20 18:47 | NUR ---
pT c/o of constantly running nose for one hr, notified dr Hurley received one time order for PO Claritin 10 mg.
[2020-10-20] MEDS ORDERED: CLARITIN PO ONE (19:00)
[2020-10-20] MEDS ORDERED: LANTUS SQ SCH (21:00)
[2020-10-21 00:13] VITALS: BP 116/69
[2020-10-21 04:35] VITALS: BP 137/88
[2020-10-21 05:16] LABS: BASOPHIL % 0.3 % (0.0-0.2); EOSINOPHIL # 0.1 10^3/uL (0.0-0.2); EOSINOPHIL % 1.2 % (0.0-5.0); LYMPHOCYTES # 2.74 10^3/uL1 (1.0-4.8); LYMPHOCYTES % 46.6 % (24.0-44.0); MONOCYTES # 0.2 10^3/uL (0.3-0.8); MONOCYTES % 3.9 % (5.0-12.0); NEUTROPHIL # 2.8 10^3/uL (1.8-7.7); NEUTROPHILS % 47.5 % (41.0-85.0); PLATELET COUNT 214 10^3/uL (150-400)
[2020-10-21 05:44] LABS: MEAN CORP HGB 26.2 pg (26-34); RED CELL DISTRIBUTION WIDTH 15.8 % (11.5-14.5)
[2020-10-21 06:14] LABS: CALCIUM 8.5 mg/dL (8.4-10.5); CARBON DIOXIDE 21.1 mmol/L (20.0-32)
[2020-10-21] MEDS: HUMULIN R SQ SCH ×4 (07:30→20:49)
[2020-10-21 08:45] VITALS: BP 131/95
[2020-10-21] MEDS: PROTONIX PO SCH (09:00)
[2020-10-21] MEDS: HNS 1000ML/KCL 20MEQ 1,000 ML IV SCH ×3 (09:04→20:00)
--- NOTE | 2020-10-21 10:20 | PRM.PN ---
PROGRESS NOTE S/O/A/P DATE: 10/21/20 TIME: 10:20am SUBJECTIVE: BG remains elevated, but RN reports that Pt has not been compliant with his Diabetic Diet. Some URI Sx's with runny nose and "burning sensation" on his tongue and throat today, but otherwise feels "better" overall. No further fevers or bloody BMs overnight. OBJECTIVE: PHYSICAL EXAMINATION: VITAL SIGNS: T 97.7, HR 97, RR 18, BP 131/95, O2 sat 95% RA GENERAL: Resting comfortably in NAD. No family or friends present at bedside. HEENT: NC/AT. PERRLA. EOMI. MMM. Neck is supple. LUNGS: CTAB. No wheezing, rales, or rhonchi. No sign of respiratory distress or cyanosis. HEART: Normal S1S2. No murmurs, rubs, gallops, or thrills. ABDOMEN: Soft. NTTP. No rebound or guarding. Normal BS throughout. Obese. EXTREMITIES: No pedal edema noted. Moving all 4 extremities equally. NEUROLOGIC: AAOx3. No motor or sensory deficits noted. Gait was not assessed at this time. LABORATORY DATA: Reviewed and significant for Hgb 12.9, MCV 76.5, HgbA1c 14, AST 41, ALT 81, Gluc 340, PCT 6.58, FOBT +/--, C Diff neg, Bld Cx neg x1 day, Stool Cx neg, Throat Cx +Staph s/s Levaquin. IMAGING STUDIES: No new studies today. ASSESSMENT / PLAN: 1) Sepsis: Improving. Likely due to infectious diarrhea. Stool culture is negative today, but O&P is still pending. Abx were not initially given by the Admitting Physician due to concerns for possible Ecoli 0157 infection (now ruled out with negative Stool Cx). 2) Abdominal pain with NVD: Improving and mostly resolved. Continue Sx Tx for now. 3) FOBT+: Pt reports no further episodes of bloody diarrhea. Repeat FOBT today was negative. Monitor for now. 4) Microcytic Anemia: Will follow up on iron studies. Pt may benefit from some iron supplements. 5) Volume Depletion: Due to NVD. Improving with IVFs. 6) Acute Renal Failure: Prerenal and due to #5 above. Resolved with IVFs. 7) Hypoxemia: O2 sats were 87-89% RA in ED. Resolved with Pt now doing well on RA. CTA chest was negative for PE. 8) Recent COVID-19+: Pt reports having tested + for COVID-19 at the end of July 2020. CTA chest shows some ground glass opacities consistent with prior COVID-19. Will monitor for now. 9) Throat Infection: Throat Cx shows growth of Staph s/s Levaquin (started today). 10) Elevated LFTs: Improving. Hepatitis panel is still pending. CTA shows an enlarged markedly steatotic liver. Pt will need to follow up closely with his PCP. 11) DM-2 uncontrolled: Pt reports a Hx of DKA due to noncompliance. Will increase the Lantus dose again today, and continue Insulin per Correction Scale PRN. HgbA1c is 14. 12) Hx of HTN: Pt cannot recall the medication that he is supposed to be taking. BPs currently are stable off all meds. Will consider starting Lisinopril on DC. 13) Obesity: Pt has been counseled and encouraged to lead a healthier lifestyle. 14) Noncompliance: Pt has been counseled and encouraged to take his medications as prescribed. 15) GI and DVT prophylaxis: Will continue Protonix and SCDs/Early Ambulation. Will avoid Lovenox for now due to #3 above. SHILA GUTIERRES MD Oct 21, 2020 10:20
[2020-10-21] MEDS: LEVAQUIN PO SCH (10:30)
[2020-10-21] MEDS ORDERED: LANTUS SQ ONE (11:00)
[2020-10-21 12:53] VITALS: BP 119/74
--- NOTE | 2020-10-21 13:13 | NUR ---
DISCHARGE PLAN PER CHART REVIEW PATIENT LIVES AT HOME IN [place] ALONE. HE IS VERY INDEPENDENT OF ADLS. HE DOES NOT USE DME. HE TRAVELED HERE TO VISIT FAMILY. NO D/C PLANNING NEEDED AT THIS TIME. DISCHARGE PLAN IS FOR PATIENT TO D/C BACK HOME ALONE TO ROUTINE CARE IN [place].
[2020-10-21] MEDS: TYLENOL PO PRN (14:47)
[2020-10-21 17:29] VITALS: BP 128/84
[2020-10-21 20:00] VITALS: BP 127/82
[2020-10-21] MEDS ORDERED: LANTUS SQ SCH ×2 (21:00)
[2020-10-22 00:10] VITALS: BP 118/82
[2020-10-22 05:15] VITALS: BP 132/89
[2020-10-22 05:16] LABS: BASOPHIL % 0.5 % (0.0-0.2); EOSINOPHIL # 0.1 10^3/uL (0.0-0.2); EOSINOPHIL % 1.3 % (0.0-5.0); LYMPHOCYTES # 2.92 10^3/uL1 (1.0-4.8); LYMPHOCYTES % 48.7 % (24.0-44.0); MONOCYTES # 0.3 10^3/uL (0.3-0.8); MONOCYTES % 4.8 % (5.0-12.0); NEUTROPHIL # 2.6 10^3/uL (1.8-7.7); NEUTROPHILS % 43.7 % (41.0-85.0); PLATELET COUNT 231 10^3/uL (150-400); RED CELL DISTRIBUTION WIDTH 15.7 % (11.5-14.5)
--- NOTE | 2020-10-22 05:56 | NUR ---
Pt has declined to wear tele. Pt has been educated on the importance of wearing the tele.
[2020-10-22 07:10] LABS: CALCIUM 8.9 mg/dL (8.4-10.5); CARBON DIOXIDE 19.9 mmol/L (20.0-32)
[2020-10-22] MEDS: HUMULIN R SQ SCH ×3 (08:39→18:38)
[2020-10-22] MEDS: LEVAQUIN PO SCH (08:40)
[2020-10-22] MEDS: PROTONIX PO SCH (08:40)
[2020-10-22] MEDS: HNS 1000ML/KCL 20MEQ 1,000 ML IV SCH ×2 (08:40→16:00)
[2020-10-22 08:51] VITALS: BP 126/91
[2020-10-22] MEDS ORDERED: INSU100I13 SQ (08:59)
[2020-10-22] MEDS ORDERED: LISI-593 PO (08:59)
[2020-10-22] MEDS ORDERED: Levofloxacin PO (08:59)
[2020-10-22] MEDS ORDERED: ZESTRIL PO SCH (09:00)
[2020-10-22 12:14] LABS: HEP A AB, IgM Negative (Negative)
[2020-10-22 12:59] VITALS: BP 125/74
[2020-10-22 18:00] VITALS: BP 130/99
--- NOTE | 2020-10-22 18:30 | NUR ---
DISCHARGE PATIENT IV CATHETER REMOVED, TIP INTACT. DISCHARGE INSTRUCTIONS GIVEN INCLUDING NEW AND CONTINUED MEDICATIONS, FOLLOW UP APPOINTMENTS, DIET AND ACTIVITY PER INSTRUCTIONS IN DISCHARGE PACKET. MED PRESCRIPTIONS GIVEN TO PATIENT. PATIENT A VERBALIZED UNDERSTANDING. PATIENT DENIES FURTHER NEEDS AT THIS TIME. PATIENT ESCORTED OFF UNIT VIA WHEELCHAIR AND WAS ASSISTED INTO CAR WITH FRIEND
[2020-10-22 18:32] VITALS: BP 130/99
--- NOTE | 2020-10-23 23:19 | PRM.DC ---
DISCHARGE SUMMARY Y Date of Admission: Date of Discharge: FINAL DIAGNOSES: Please refer to my History and Physical to the point of my impression. HOSPITAL COURSE: SHILA GUTIERRES MD Oct 23, 2020 23:19
== END 2020-10-22 18:30 | disposition home or self-care (01) | DRG 872 ==
LOC: ER 03:25 → ICU 06:27 → MS 10-20 10:53
PROVIDERS: ADMIT Internal Medicine Nephrology; ATTEND Internal Medicine Nephrology
PROC: 05HB33Z Insertion of Infusion Device into Right Basilic Vein, Percutaneous Approach (ICD-10-PCS; principal; 2020-10-19)
PROC: B54MZZA Ultrasonography of Right Upper Extremity Veins, Guidance (ICD-10-PCS; 2020-10-19)
DX: A41.9 Sepsis, unspecified organism (principal); N17.9 Acute kidney failure, unspecified; D50.9 Iron deficiency anemia, unspecified; E86.0 Dehydration; E11.65 Type 2 diabetes mellitus with hyperglycemia; E66.9 Obesity, unspecified; E78.5 Hyperlipidemia, unspecified; R09.02 Hypoxemia; K76.0 Fatty (change of) liver, not elsewhere classified; Z20.822 Contact with and (suspected) exposure to COVID-19; J02.9 Acute pharyngitis, unspecified; R79.89 Other specified abnormal findings of blood chemistry; Z86.16 Personal history of COVID-19; I10 Essential (primary) hypertension; Z91.19 Patient's noncompliance with other medical treatment and regimen; Z83.3 Family history of diabetes mellitus; Z91.14 Patient's other noncompliance with medication regimen; Z71.3 Dietary counseling and surveillance; Z68.31 Body mass index [BMI] 31.0-31.9, adult
CPT/HCPCS: 36415; 36569; 36600; 71045; 71275; 80048; 80053; 80074; 80307; 81000; 82272; 82607; 82728; 82746; 82803; 82948; 83036; 83550; 83605; 83615; 83630; 83690; 83735; 84100; 84145; 84443; 85025; 85379; 86140; 86674; 87040; 87045; 87070; 87077; 87086; 87177; 87186; 87230; 87426; 87633; 87804; 87880; 93005; 99291; G0378; J0696; J1650; J1815; J1956; J2405; J3010; J7030; J7050; Q9965